=== PATIENT | female | born 1980 | race Two or more races ===

== ENCOUNTER 2021-05-27 09:27 | Outpatient (REF) | payer OTHER, SELFPAY | END 2021-05-27 09:28 | disposition home or self-care (01) | LOC: HO.HMGCX 09:27 | PROVIDERS: Visit Provider Internal Medicine | DX: Z13.89 Encounter for screening for other disorder (principal) ==

== ENCOUNTER 2021-05-30 08:00 | Outpatient (RCR) | payer OTHER, SELFPAY ==
--- NOTE | ~2021-05-30 | XR_ITS ---
EXAMINATION: XR HIP, LEFT XR FEMUR, LEFT CLINICAL INFORMATION: Left hip and thigh pain. COMPARISON: None TECHNIQUE: AP and frog-leg lateral views of the left hip. AP and lateral views of the left femur were obtained. FINDINGS: Bones and soft tissues are normal. No fracture. Alignment is anatomic. Hip joint space is maintained. The left sacroiliac joint and the pubic symphysis are intact. XR/XR hip LT min 2V IMPRESSION: Normal left hip and femur.
--- NOTE | ~2021-05-30 | XR_ITS ---
EXAMINATION: XR HIP, LEFT XR FEMUR, LEFT CLINICAL INFORMATION: Left hip and thigh pain. COMPARISON: None TECHNIQUE: AP and frog-leg lateral views of the left hip. AP and lateral views of the left femur were obtained. FINDINGS: Bones and soft tissues are normal. No fracture. Alignment is anatomic. Hip joint space is maintained. The left sacroiliac joint and the pubic symphysis are intact. XR/XR femur LT 2V IMPRESSION: Normal left hip and femur.
== END 2021-06-10 08:11 | disposition home or self-care (01) ==
LOC: HO.PTCHIC 08:00
PROVIDERS: PCP Internal Medicine; Visit Provider Internal Medicine
DX: M25.552 Pain in left hip (principal)
CPT/HCPCS: 73502; 73552; 97033; 97110; 97161